=== PATIENT | male | born 1995 | race Caucasian/White ===

== ENCOUNTER 2017-03-18 10:49 | Inpatient (IN) | payer OTHER ==
[2017-03-18] VITALS (11 sets, daily range): BP systolic 114–142; BP diastolic 66–84
[~2017-03-18] VITALS: Ht 185.4 cm; Wt 66.5 kg
[~2017-03-18 10:49] MED LIST: KEFLEX500 MG PO
[2017-03-18 11:55] LABS: BASO % 0.2 % (0.0-1.0); EOS % 0.1 % (1.0-4.0); HEMOGLOBIN 16.7 g/dl (14.0-18.0); LYMPH # 1.7 10*3/uL (1.3-4.4); LYMPH % 9.7 % (27.0-41.0); MEAN CELL VOLUME 88.3 fl (80.0-94.0); MEAN CORPUSCULAR HGB 32.1 pg (27.0-31.0); MEAN CORPUSCULAR HGB CONC 36.3 g/dl (33.0-37.0); MEAN PLATELET VOLUME 10.8 fl (9.6-12.3); MONO # 1.4 10*3/uL (0.1-1.0); MONO % 8.3 % (3.0-9.0); NEUT # 13.8 10*3/uL (2.3-7.9); NEUT % 81.4 % (47.0-73.0); PLATELET COUNT AUTOMATED 197 10*3/uL (130-400); RED BLOOD COUNT 5.21 10*6/uL (4.50-5.90); RED CELL DISTRI WIDTH 12.1 % (0-14.5)
[2017-03-18 12:00] LABS: BILIRUBIN 2+ (NEGATIVE); BLOOD 1+ (NEGATIVE); CLARITY CLOUDY (CLEAR); COLOR YELLOW (YELLOW); GLUCOSE NEGATIVE (NEGATIVE); KETONE 3+ (NEGATIVE); LEUKO ESTERASE NEGATIVE (NEGATIVE); NITRITE NEGATIVE (NEGATIVE); SPECIFIC GRAVITY 1.025 (1.005-1.030); UROBILINOGEN >= 8.0 E.U./dl (0.2-1.0)
[2017-03-18 12:16] LABS: ALBUMIN 3.8 gm/dl (3.1-4.5); ALKALINE PHOSPHATASE 64 U/L (45-117); BUN 13 mg/dl (7-24); CHLORIDE 98 mmol/L (98-107); POTASSIUM 3.6 mmol/L (3.5-5.1); SGOT/AST 14 IU/L (3-35); SGPT/ALT 24 U/L (12-78); SODIUM 136 mmol/L (136-145)
[2017-03-18 12:38] LABS: BACTERIA 1+; MUCOUS 3+; RBC 21-30 rbc/hpf (0-2)
[2017-03-18] MEDS ORDERED: ALLERGY RELIEF10 M2 PO (18:36)
[2017-03-19] VITALS (13 sets, daily range): BP systolic 99–130; BP diastolic 53–75
[2017-03-19 07:16] LABS: BASO % 0.1 % (0.0-1.0); EOS % 0.1 % (1.0-4.0); HEMATOCRIT 40.4 % (42.0-52.0); HEMOGLOBIN 14.4 g/dl (14.0-18.0); LYMPH # 1.4 10*3/uL (1.3-4.4); LYMPH % 10.3 % (27.0-41.0); MEAN CORPUSCULAR HGB 31.7 pg (27.0-31.0); MEAN CORPUSCULAR HGB CONC 35.6 g/dl (33.0-37.0); MEAN PLATELET VOLUME 10.2 fl (9.6-12.3); MONO # 1.2 10*3/uL (0.1-1.0); MONO % 8.5 % (3.0-9.0); NEUT # 11.1 10*3/uL (2.3-7.9); NEUT % 80.6 % (47.0-73.0); PLATELET COUNT AUTOMATED 146 10*3/uL (130-400); RED BLOOD COUNT 4.54 10*6/uL (4.50-5.90); WHITE BLOOD COUNT 13.7 10*3/uL (4.8-10.8)
[2017-03-19 07:38] LABS: BUN 11 mg/dl (7-24); CHLORIDE 101 mmol/L (98-107); CREATININE 1.08 mg/dL (0.70-1.30); SODIUM 137 mmol/L (136-145)
[2017-03-20] VITALS: BP 124/67
[2017-03-20 08:00] VITALS: BP 130/62
[2017-03-20 12:00] VITALS: BP 138/64
[2017-03-20] MEDS ORDERED: NORCO 5-325 TA1 EACH PO (12:42)
[2017-03-20] MEDS ORDERED: AUGMENTIN 875875 MG PO (12:42)
[2017-03-20] MEDS ORDERED: NORCO 5/325 PO (12:42)
== END 2017-03-20 13:47 | disposition home or self-care (01) | DRG 854 ==
LOC: ED 10:49 → EDHOLD 17:48 → 5E 17:48
PROVIDERS: Emergency Medicine
PROC: 0DTJ4ZZ Resection of Appendix, Percutaneous Endoscopic Approach (ICD-10-PCS; principal; 2017-03-19)
DX: A41.9 Sepsis, unspecified organism (principal); K35.80 Unspecified acute appendicitis; R65.20 Severe sepsis without septic shock; E86.0 Dehydration; B00.7 Disseminated herpesviral disease